=== PATIENT | female | born 1990 | race Caucasian/White ===

== ENCOUNTER 2019-07-06 17:42 | Inpatient (IN) ==
[2019-07-06] MEDS ORDERED: ACETAMINOPHEN 1,000 MG/100 ML BTL IV ONE (18:01)
[2019-07-06] MEDS ORDERED: KETOROLAC TROMETHAMINE 30 MG/ML VIAL IV ONE (18:01)
[2019-07-06] MEDS ORDERED: NORMAL SALINE 1,000 ML IV ONE (18:05)
--- NOTE | 2019-07-06 18:16 | ERNOTE ---
Abdominal HPI - General Chief Complaint: Abdominal Pain Time Seen by Provider: 07/06/19 17:42 Source: patient Exam Limitations: no limitations - Immun/Allergies/Home Medications Immunizatons: IMMUNIZATION HX Immunizations Up to Date Yes History of Influenza Vaccine Yes Hx Pneumococcal Vaccination No Allergies/Adverse Reactions: Allergies No Known Allergies Allergy (Verified 07/06/19 20:23) Home Medications: HOME MEDICATIONS NK 07/06/19 [Last Taken Unknown] - History of Present Illness Narrative: Patient had a hysterectomy on 05/30/2019, states that she was doing well, pain had resolved. Two days ago after having sex (first time since surgery) she started to have lower abdominal pain which has increased in severity since. She was seen in the [place] ER, had labs and abdominal CT (IV contrast only) which showed inflammation in the pelvis,small amount of air at the pelvic cuff. Patient was discussed with Dr Reyes who accepted the patient for transfer, patient received fentanyl and vancomycin/Zosyn prior to coming here, currently rates her pain as 8-9/10 Timing: constant, getting worse Quality: severe Modifying Factors - (Improves): Present: rest Modifying Factors - (Worsens): Present: breathing, coughing, movement Associated Symptoms: Absent: diarrhea-gross blood, fever/chills, heartburn, nausea, vomiting, shortness of breath Prior Treatment: Present: recently seen, currently on antibiotics Review of Systems - Review of Systems Constitutional: Absent: fever, chills ENT: Present: no symptoms reported Respiratory: Absent: shortness of breath Cardiology: Absent: chest pain Gastrointestinal/Abdominal: Present: See HPI Genitourinary: Absent: frequency, dysuria Musculoskeletal: Absent: back pain Neurological: Absent: headache Medical History (Updated 06/25/19 @ 15:00 by Ingrid Bernal MD) Hx of trichomonal vaginitis Onset Date: ~11/2018 Asthma Depression Genital herpes Hx of migraines Tobacco abuse Abnormal Pap smear of cervix Vulvovaginitis Onset Date: ~09/11/13 Anemia affecting Onset Date: ~07/23/14 Surgical History: Surgical History (Updated 06/25/19 @ 14:31 by Lalita Toscano RN) History of bilateral salpingectomy Onset Date: ~01/2019 History of cholecystectomy History of cystoscopy Onset Date: 05/30/19 History of wisdom tooth extraction Status post laparoscopic hysterectomy Onset Date: 05/30/19 History of section Onset Date: ~06/20/1308/2012-Breech presentation, 09/2013 repeat, 09/2014-repeat. Family History: Family History (Updated 12/13/18 @ 09:58 by Jacqui Sorenson LPN) Father , age 48 Diabetes Hypertension Social History: (Last Reviewed 07/06/19 @ 18:12 by Radha Stokes MD) Social History: Marital status: household members: children, significant other number of children: 4 current occupational status: unemployed Highest education level completed: high school graduate Service: No Tobacco: Smoking Status: Current every day smoker tobacco type: cigarettes Smoking cigarettes per day: 20.0 Smoking packs per day: 1 Years smoked: 15 Smoking pack-years: 15.00 Alcohol: alcohol intake: current Alcohol type: hard liquor alcohol intake frequency: other details: once a month Substance Use: substance use type: does not use Dietary Habits: caffeine: Yes caffeine comment: 8 daily Type: carbonated beverages, coffee, tea Pets: pets and animals: cat(s) Physical Exam - Physical Exam General Appearance: Present: wd/wn, alert, moderate distress Respiratory: Present: no respiratory distress, normal breath sounds, no accessory muscle use, lungs clear Cardiovascular/Chest: Present: regular rate, rhythm, no murmur Gastrointestinal/Abdominal: Present: soft, tenderness - lower abdomen, guarding Back Exam: Present: no CVA tenderness Extremity Exam: Present: no edema Neurological Exam: Present: alert, oriented, normal mood/affect Skin Exam: Present: normal color, warm/dry Progress - Results and Orders Patient's Lab Results:: I have reviewed the patient's lab results. - Vital Signs Patient's Vital Signs:: I have reviewed the patient's vital signs. Vital Signs: Vital Signs 07/06/19 17:51 Temperature 36.6 C Pulse Rate 88 Respiratory Rate 14 Blood Pressure 120/61 O2 Sat by Pulse Oximetry 99 - CT/Ultrasound CT/Ultrasound Narrative: reviewed CT report from [facility] - Progress/Reassessment Chief Complaint: Abdominal Pain Progress Note-Subjective: 07/06/19 18:[address] Reyes, will come and see patient 07/06/19 18:34 states minimal pain relieve from toradol and acetaminophen IV but moves around more easily and appears more comfortable Departure Clinical Impression: Peritonitis, Pelvic abscess in female - Departure Disposition: Still a patient Condition: Stable
[2019-07-06 18:21] LABS: Hematocrit 36.4 % (37.0-47.0); Hemoglobin 12.3 gm/dL (12.5-16.0); Mean Cell Volume 89.7 fl (78-100); Mean Corpuscular Hemoglobin 30.3 pg (27-31); Mean Corpuscular Hgb Conc 33.8 g/dl (32-36); Mean Platelet Volume 10.3 fl (8-12.5); Neutrophil # 9.7 K/mm3 (1.3-6.0); Neutrophil % 76.4 % (42-75.0); Platelet Count 200 K/mm3 (150-450); Red Blood Count 4.06 M/mm3 (4.2-5.4); Red Cell Distribution Width 13.3 % (11.5-14.0); White Blood Count 12.7 K/mm3 (4.0-10.5)
[2019-07-06] MEDS ORDERED: ONDANSETRON HCL/PF 2 MG/ML VIAL IV PRN (19:45)
[2019-07-06] MEDS ORDERED: hydrOXYzine PAMOATE 50 MG CAPSULE PO PRN (19:46)
[2019-07-06] MEDS ORDERED: HYDROmorphone HCL 2 MG/ML VIAL IV PRN (19:48)
[2019-07-06] MEDS ORDERED: DEXTROSE 5%-0.5 NORMAL SALINE 1,000 ML IV PRN (20:00)
--- NOTE | 2019-07-06 21:04 | HP ---
Chief Complaint - Chief Complaint Date of Service: 07/06/19 Time of Service: 20:25 Chief Complaint: uncontrolled abdominal/pelvic pain History of Present Illness: 29 yo female s/p laparoscopic hysterectomy on 05/30/19 presented to [facility] ER for uncontrolled severe lower abdominal/pelvic pain that started immediately after sex on Sunday night. The pain continued to increase over the past 2 days. Pain is worse with movement, improves with position and lying still. No change with BM or urination. This was the first time the patient had sex since her surgery. She states she felt fine before Sunday night. She admits to ababdominal pain, vaginal discharge, loose stools x 1 on Sunday. She specifically denies N/V/F/C, SOB, night sweats, or dysuria. Medical History (Updated 07/06/19 @ 19:47 by Radha Stokes MD) Hx of trichomonal vaginitis Onset Date: ~11/2018 Asthma Depression Genital herpes Hx of migraines Tobacco abuse Abnormal Pap smear of cervix Vulvovaginitis Onset Date: ~09/11/13 Anemia affecting Onset Date: ~07/23/14 Surgical History: Surgical History (Updated 06/25/19 @ 14:31 by Lalita Toscano RN) History of bilateral salpingectomy Onset Date: ~01/2019 History of cholecystectomy History of cystoscopy Onset Date: 05/30/19 History of wisdom tooth extraction Status post laparoscopic hysterectomy Onset Date: 05/30/19 History of section Onset Date: ~06/20/1308/2012-Breech presentation, 09/2013 repeat, 09/2014-repeat. Family History: Family History (Updated 12/13/18 @ 09:58 by Jacqui Sorenson LPN) Father , age 48 Diabetes Hypertension Social History: (Last Reviewed 07/06/19 @ 20:36 by Cristian Reyes DO) Social History: Marital status: household members: children, significant other number of children: 4 current occupational status: unemployed Highest education level completed: high school graduate Service: No Tobacco: Smoking Status: Current every day smoker tobacco type: cigarettes Smoking cigarettes per day: 20.0 Smoking packs per day: 1 Years smoked: 15 Smoking pack-years: 15.00 Alcohol: alcohol intake: current Alcohol type: hard liquor alcohol intake frequency: other details: once a month Substance Use: substance use type: does not use Dietary Habits: caffeine: Yes caffeine comment: 8 daily Type: carbonated beverages, coffee, tea Pets: pets and animals: cat(s) Review Of Systems (GEN) - Review of Systems EENTM: Present: No Symptoms Reported Respiratory: Present: No Symptoms Reported Cardiac: Present: No Symptoms Reported Abdominal: Present: Abdominal Pain Genitourinary: Present: Other - watery yellow vaginal discharge Musculoskeletal: Present: No Symptoms Reported Neurological: Present: No Symptoms Reported Skin: Present: No Symptoms Reported Endocrine: Present: No Symptoms Reported Immunizations: IMMUNIZATION HX Immunizations Up to Date Yes History of Influenza Vaccine Yes Hx Pneumococcal Vaccination No Allergies/Adverse Reactions: Allergies Allergy/AdvReac Type Severity Reaction Status Date / Time No Known Allergies Allergy Verified 07/06/19 20:23 Home Medications: HOME MEDICATIONS NK 07/06/19 [Last Taken Unknown] Exam - Exam Vital Signs: Vital Signs - Last Taken Temp 36.6 C 07/06/19 17:51 Pulse 88 07/06/19 17:51 Resp 14 07/06/19 17:51 BP 120/61 07/06/19 17:51 Pulse Ox 99 07/06/19 17:51 Constitutional: Present: Alert, Oriented x3, Cooperative, Severe distress, Obese ENT Exam: Present: hearing grossly normal Neck: Present: supple Back Exam: Present: no CVA tenderness Breasts: Present: Exam deferred Respiratory: Present: lungs clear, no respiratory distress Cardiovascular/Chest: Present: normal peripheral pulses, regular rate, rhythm, no edema Abdomen: Present: obese, tender, rebound tenderness, distended, hypoactive /Rectal: Present: Other - yellow watery fluid in vaginal vault. Granulation tissue at cuff, friable with contact bleeding, tender, fluid coming from deep proximal to cuff - culture swab placed within this cavity after being cleaned with large swab. Extremity: Present: non-tender, no pedal edema Skin Exam: Present: normal color, warm/dry, no cyanosis Lymphatic: Present: no adenopathy Neurologic: Present: normal mood/affect, oriented x 3 Appearance: Present: appropriate appearance, appropriate insight Eye contact: Present: cooperative, good eye contact Thoughts: Present: normal thought pattern, normal mood /affect Diagnostic Studies: Abnormal Lab Results 07/06/19 07/06/19 07/06/19 Range/Units 18:19 18:19 18:19 WBC 12.7 H (4.0-10.5) K/mm3 RBC 4.06 L (4.2-5.4) M/mm3 Hgb 12.3 L (12.5-16.0) gm/dL Hct 36.4 L (37.0-47.0) % Immature Gran % (Auto) 0.50 H (0.001-0.429) % Immature Gran # (Auto) 0.06 H (0.000-0.0310) K/mm3 Neutrophils % 76.4 H (42-75.0) % Lymphocytes % 16.2 L (20-51) % Neutrophils # 9.7 H (1.3-6.0) K/mm3 ESR 27 H (0-15) mm/hr C-Reactive Prot, Quant 17.1 H (0.0-0.9) mg/dL Laboratory Results WBC 12.7 K/mm3 (4.0-10.5) H 07/06/19 18:19 RBC 4.06 M/mm3 (4.2-5.4) L 07/06/19 18:19 Hgb 12.3 gm/dL (12.5-16.0) L 07/06/19 18:19 Hct 36.4 % (37.0-47.0) L 07/06/19 18:19 MCV 89.7 fl (78-100) 07/06/19 18:19 MCH 30.3 pg (27-31) 07/06/19 18: MCHC 33.8 g/dl (32-36) 07/06/19 18:19 RDW 13.3 % (11.5-14.0) 07/06/19 18:19 Plt Count 200 K/mm3 (150-450) 07/06/19 18:19 MPV 10.3 fl (8-12.5) 07/06/19 18:19 Immature Gran % (Auto) 0.50 % (0.001-0.429) H 07/06/19 18:19 Immature Gran # (Auto) 0.06 K/mm3 (0.000-0.0310) H 07/06/19 18:19 76.4 % (42-75.0) H 07/06/19 18:19 16.2 % (20-51) L 07/06/19 18:19 5.1 % (0.0-9) 07/06/19 18:19 1.7 % (0.0-3.0) 07/06/19 18:19 0.1 % (0.0-1.0) 07/06/19 18:19 Nucleated RBC % 0.0 k/mm3 (0-1) 07/06/19 18:19 9.7 K/mm3 (1.3-6.0) H 07/06/19 18:19 2.06 k/mm3 (1.5-3.5) 07/06/19 18:19 0.7 k/mm3 (0.0-1.0) 07/06/19 18:19 0.2 k/mm3 (0.0-0.7) 07/06/19 18:19 Absolute Basophils 0.0 k/mm3 (0.0-0.1) 07/06/19 18:19 ESR 27 mm/hr (0-15) H 07/06/19 18:19 0.6 mmol/L (0.4-2.0) 07/06/19 18:19 C-Reactive Prot, Quant 17.1 mg/dL (0.0-0.9) H 07/06/19 18:19 wet prep - >50% clue cells, clusters of WBCs, occasional RBC. No trichomonas, yeast, buds, or hyphae seen. CT without contrast at [facility] shows pelvic inflammation with small probable abscesses above cuff in an area difficult to drain. No sign of bowel perforation. Assessment/Plan - Assessment/Plan (1) Peritonitis Assessment: Admit for IV antibiotics and pain control. Anticipate patient will need 24-48 hours of IV antibiotics and 14 days of oral antibiotics as outpatient. Continue current antibiotic regimen until culture results available. Repeat CBC in 24 hours, CT scan with contrast in 2-3 days. Problem: Acute (2) Pelvic abscess in female Problem: Acute
[2019-07-06] MEDS: metroNIDAZOLE/SODIUM CHLORIDE 500 MG/100 ML BAG IV SCH (21:32)
[2019-07-06] MEDS: DOCUSATE SODIUM 100 MG CAPSULE PO SCH (21:38)
[2019-07-06] MEDS: oxyCODONE HCL/ACETAMINOPHEN 1 TAB TABLET PO PRN (21:40)
[2019-07-07] MEDS ORDERED: hydrOXYzine PAMOATE 25 MG CAPSULE ONE (00:42)
[2019-07-07] MEDS: IBUPROFEN 800 MG TABLET PO PRN ×3 (00:44→14:54)
[2019-07-07] MEDS: metroNIDAZOLE/SODIUM CHLORIDE 500 MG/100 ML BAG IV SCH ×3 (04:26→21:44)
[2019-07-07] MEDS ORDERED: HYDROmorphone HCL 1 MG/ML DISP.SYRIN IV PRN (06:38)
[2019-07-07] MEDS: oxyCODONE HCL/ACETAMINOPHEN 1 TAB TABLET PO PRN ×3 (07:57→21:49)
[2019-07-07] MEDS: DOCUSATE SODIUM 100 MG CAPSULE PO SCH ×2 (07:59→20:11)
--- NOTE | 2019-07-07 09:06 | PN ---
Subjective - Date and Time Seen Date: 07/07/19 Time: 08:57 Subjective Narrative: Patient states pain is improved some with current pain management. Tolerating reg diet. Denies n/v/f/c. Objective - Review of Systems Generalized/Overall Review: Reports: No Symptoms Reported EENTM: Reports: No Symptoms Reported Respiratory: Reports: No Symptoms Reported Cardiac: Reports: No Symptoms Reported Abdominal: Reports: Abdominal Pain Genitourinary Symptoms: Reports: No Symptoms Reported Musculoskeletal Complaints: Reports: No Symptoms Reported Neurological: Reports: No Symptoms Reported Skin: Reports: No Symptoms Reported Endocrine: Reports: No Symptoms Reported - Vitals Vitals: Last Vital Signs Temp 36.5 C 07/07/19 06:24 Pulse 60 07/07/19 06:24 Resp 18 07/07/19 06:24 BP 102/59 07/07/19 06:24 Pulse Ox 98 07/07/19 06:24 - Abnormal Lab Findings Abnormal Lab Findings: Abnormal Lab Results 07/06/19 07/06/19 07/06/19 Range/Units 18:19 18:19 18:19 WBC 12.7 H (4.0-10.5) K/mm3 RBC 4.06 L (4.2-5.4) M/mm3 Hgb 12.3 L (12.5-16.0) gm/dL Hct 36.4 L (37.0-47.0) % Immature Gran % (Auto) 0.50 H (0.001-0.429) % Immature Gran # (Auto) 0.06 H (0.000-0.0310) K/mm3 Neutrophils % 76.4 H (42-75.0) % Lymphocytes % 16.2 L (20-51) % Neutrophils # 9.7 H (1.3-6.0) K/mm3 ESR 27 H (0-15) mm/hr C-Reactive Prot, Quant 17.1 H (0.0-0.9) mg/dL - Exam Constitutional: Present: Oriented x3, Cooperative, Somnolent ENT Exam: Present: hearing grossly normal Breasts: Present: Exam deferred Respiratory: Present: lungs clear, no respiratory distress Cardiovascular/Chest: Present: normal peripheral pulses, regular rate, rhythm, no edema, extra beats - occasional skip beat Abdomen: Present: soft, no rebound tenderness, tender - diffuse, worse in lower abdomen, hypoactive /Rectal: Present: Exam deferred Extremity: Present: no pedal edema, no calf tenderness Skin Exam: Present: warm/dry, no cyanosis Neurologic: Present: oriented x 3, depressed affect Appearance: Present: no memory impairment Eye contact: Present: cooperative, good eye contact, normal speech Thoughts: Present: normal thought pattern Assessment/Plan Plan Narrative: Recheck CBC today. Continue IV antibiotics till improvement in labs and exam. - Problems/Diagnosis (1) Peritonitis Problem: Acute (2) Pelvic abscess in female Problem: Acute
[2019-07-07 18:22] LABS: Hematocrit 37.3 % (37.0-47.0); Hemoglobin 12.1 gm/dL (12.5-16.0); Mean Cell Volume 94.4 fl (78-100); Mean Corpuscular Hemoglobin 30.6 pg (27-31); Mean Corpuscular Hgb Conc 32.4 g/dl (32-36); Mean Platelet Volume 10.7 fl (8-12.5); Neutrophil # 5.1 K/mm3 (1.3-6.0); Neutrophil % 64.9 % (42-75.0); Platelet Count 145 K/mm3 (150-450); Red Blood Count 3.95 M/mm3 (4.2-5.4); Red Cell Distribution Width 13.7 % (11.5-14.0); White Blood Count 7.8 K/mm3 (4.0-10.5)
[2019-07-07 19:50] VITALS: BP 104/50
--- NOTE | 2019-07-08 12:12 | DS ---
(1) Peritonitis Problem: Acute (2) Pelvic abscess in female Problem: Acute Date of Discharge:: 07/07/19 - left AMA Description of Stay: 29-year-old female status post laparoscopic hysterectomy 6 weeks ago presented to the emergency room with sudden onset of severe abdominal pain shortly after having some sexual intercourse on Sunday night. Patient was transferred [facility] to our facility where she was admitted and placed on IV antibiotic s. She remained afebrile throughout her hospital stay but continued to have diffuse rebound tenderness. Her ileus resolved and her white count normalized after 24 hours of IV antibiotics. Patient was requiring narcotic medication for control of her pain all the way up into the time of leaving the hospital AGAINST MEDICAL ADVICE. I saw patient yesterday morning and yesterday evening around 6 PM at which time she appeared to be doing well and accepting of the plan to continue IV antibiotics until the morning at which time we would discharge her on oral antibiotics. At that time I explained to her the importance of receiving adequate antibiotic therapy in order to completely resolve the infection and prevent development of sepsis which could lead to . Procedures Performed: see notes below List Procedures: IV antibiotics, pain medication Results and Findings: Pending Mircobiology Results 07/06/19 20:01 Vaginal Abscess Culture - Preliminary No Growth Lab Pending Results 07/06/19 18:19: WBC 12.7 H, RBC 4.06 L, Hgb 12.3 L, Hct 36.4 L, MCV 89.7, MCH 30.3, MCHC 33.8, RDW 13.3, Plt Count 200, MPV 10.3, Immature Gran % (Auto) 0.50 H, Immature Gran # (Auto) 0.06 H, Neutrophils % 76.4 H, Lymphocytes % 16.2 L, Monocytes % 5.1, Eosinophils % 1.7, Basophils % 0.1, Nucleated RBC % 0.0, Neutrophils # 9.7 H, Lymphocytes # 2.06, Monocytes # 0.7, Eosinophils # 0.2, Absolute Basophils 0.0 07/06/19 18:19: ESR 27 H 07/06/19 18:19: C-Reactive Prot, Quant 17.1 H 07/06/19 18:19: Lactic Acid, Venous 0.6 07/07/19 18:00: WBC 7.8 D, RBC 3.95 L, Hgb 12.1 L, Hct 37.3, MCV 94.4, MCH 30.6, MCHC 32.4, RDW 13.7, Plt Count 145 L, MPV 10.7, Immature Gran % (Auto) 0.60 H, Immature Gran # (Auto) 0.05 H, Neutrophils % 64.9, Lymphocytes % 23.9, Monocytes % 6.4, Eosinophils % 3.9 H, Basophils % 0.3, Nucleated RBC % 0.0, Neutrophils # 5.1, Lymphocytes # 1.86, Monocytes # 0.5, Eosinophils # 0.3, Absolute Basophils 0.0 Discharge Location: Home Disposition: Against medical advice Condition: Fair Discharge Activity: Activity as tolerated Discharge Diet: General/regular food Complete Home Medications List: Complete Home Medication List: metronidazole 500 mg tablet 500 mg PO BID 14 Days #28 tab 07/08/19 sulfamethoxazole 800 mg-trimethoprim 160 mg tablet 1 tab PO BID 14 Days #28 tab 07/08/19
== END 2019-07-07 22:50 | disposition left against medical advice (07) | DRG 862 ==
LOC: ER 17:42 → MS 19:33
PROVIDERS: ADMIT Obstetrics & Gynecology; ATTEND Obstetrics & Gynecology
CPT/HCPCS: 36415; 83605; 85025; 85652; 86140; 87070; 96365; 96375; 99285; J0131